=== PATIENT | male | born 1995 | race Caucasian/White ===

== ENCOUNTER 2018-12-07 14:15 | Emergency (ER) | payer OTHER ==
[~2018-12-07] VITALS: Ht 172.7 cm; Wt 103.6 kg
[2018-12-07] MEDS ORDERED: ADACEL/BOOSTRIX VACCINE (DIPHTH/PERTUSS/ACELL/TETANUS)0.5ML SYR (90715) IM ONE (14:30)
[2018-12-07] MEDS ORDERED: LIDOCAINE 1% MDV 20ML VIAL IM ONE (14:30)
[2018-12-07] MEDS ORDERED: KEFL500C17 PO (15:14)
[2018-12-07 15:17] VITALS: BP 138/90
== END 2018-12-07 15:21 | disposition home or self-care (01) ==
LOC: M ED 14:15
DX: S61.012A Laceration without foreign body of left thumb without damage to nail, initial encounter (principal); W23.0XXA Caught, crushed, jammed, or pinched between moving objects, initial encounter; Y92.89 Other specified places as the place of occurrence of the external cause; Y99.0 Civilian activity done for income or pay

== ENCOUNTER 2020-04-15 10:56 | Emergency (ER) | payer OTHER ==
[~2020-04-15] VITALS: Ht 167.6 cm; Wt 106.7 kg
[2020-04-15 10:56] VITALS: BP 138/81
[~2020-04-15 10:56] MED LIST: KEFL500C17 PO
[2020-04-15] MEDS ORDERED: LIDOCAINE W/EPINEPHRINE 1% 20ML VIAL SC ONE (12:30)
== END 2020-04-15 13:09 | disposition home or self-care (01) ==
LOC: M ED 10:56
DX: S01.81XA Laceration without foreign body of other part of head, initial encounter (principal); W26.8XXA Contact with other sharp object(s), not elsewhere classified, initial encounter; Y92.9 Unspecified place or not applicable; Y99.0 Civilian activity done for income or pay

== ENCOUNTER 2020-06-06 16:36 | Emergency (ER) | payer OTHER ==
[~2020-06-06] VITALS: Ht 175.3 cm; Wt 105.2 kg
[2020-06-06 16:36] VITALS: BP 123/79
[2020-06-06] MEDS ORDERED: BACTRIM 160MG/800MG DS TAB PO ONE (17:30)
[2020-06-06] MEDS ORDERED: BACT800T5 PO (17:36)
[2020-06-06] MEDS ORDERED: NORC1TAB7 PO (17:36)
== END 2020-06-06 17:54 | disposition home or self-care (01) ==
LOC: M ED 16:36
DX: L05.01 Pilonidal cyst with abscess (principal)

== ENCOUNTER → 2021-06-02 | Outpatient (CLI) | payer OTHER ==
[~2021-06-02] MED LIST changes: +BACT800T5 PO; +NORC1TAB7 PO
--- NOTE | 2021-06-02 13:18 | REP ---
INDICATION: POST COVID SHORTNESS OF BREATH COMPARISON: None. TECHNIQUE: PA and lateral. FINDINGS: The mediastinum and cardiac silhouette are normal. The lung sunshine demonstrate perihilar and right infrahilar opacities. No effusion. No pneumothorax. The skeletal structures are intact and normal. IMPRESSION: Bilateral perihilar and right infrahilar opacities suspected. Correlation with physical examination and auscultation is recommended. No prior examinations are available for comparison. <Electronically signed by Thiago Luciano > 06/02/21 [id number]
== END ==
LOC: M WUC 11:54
PROVIDERS: ATTEND Nurse Practitioner Family
DX: U07.1 COVID-19 (principal)